=== PATIENT | male | born 1995 | race Caucasian/White ===

== ENCOUNTER 2019-09-01 20:45 | Emergency (ER) | payer OTHER ==
[2019-09-01] MEDS ORDERED: DIPH,PERTUS(ACELL)TETVAC-LF 0.5 ML VIAL IM ONE (21:28)
[2019-09-01] MEDS ORDERED: LIDOCAINE 1% INJ 10MG/ML (20 ML MDV) SQ STA (21:28)
--- NOTE | 2019-09-01 21:51 | XR ---
EXAMINATION TYPE: XR hand complete LT DATE OF EXAM: 09/01/2019 COMPARISON: NONE HISTORY: Pain Laceration TECHNIQUE: 3 views FINDINGS: Metacarpals are intact. I see no fracture nor dislocation. Joint spaces are normal. IMPRESSION: Negative left hand exam.
[2019-09-01 22:23] VITALS: RESP 16
[2019-09-01 22:30] VITALS: BP 149/84; PULSE 65; TEMP 97.5
--- NOTE | 2019-09-01 22:33 | ED ---
General Adult HPI - General Chief complaint: Wound/Laceration Stated complaint: Laceration Time Seen by Provider: 09/01/19 21:11 Source: patient, RN notes reviewed, old records reviewed Mode of arrival: ambulatory Limitations: no limitations - History of Present Illness Initial comments: 24-year-old male patient presents to ED for to complain of laceration to left thumb region. Patient reports that he was using a clean utility knife when it slipped causing a laceration to the lateral aspect of his left thumb. Does not know date of last tetanus. Reports his full active range of motion of digit, full sensation. Denies any other complaints. Systemic: Pt denies fatigue, fever/chills, rash. Pt denies weakness, night sweats, weight loss. Neuro: Pt denies headache, visual disturbances, syncope or pre-syncope. HEENT: Pt denies ocular discharge or irritation, otalgia, rhinorrhea, pharyngitis or notable lymphadenopathy. Cardiopulmonary: Pt denies chest pain, SOB, heart palpitations, dyspnea on exertion. Abdominal/GI: Pt denies abdominal pain, n/v/d. : Pt denies dysuria, burning w/ urination, frequency/urgency. Denies new onset urinary or bowel incontinence. MSK: Pt denies myalgia, loss of strength or function in extremities. Neuro: Pt denies new onset weakness, paresthesias. - Related Data Home Medications Medication Instructions Recorded Confirmed ALPRAZolam [ALPRAZolam XR] 2 mg PO DAILY 11/25/14 11/25/14 Previous Rx's Medication Instructions Recorded Cephalexin [Keflex] 500 mg PO Q8HR #15 cap 11/25/14 Allergies Allergy/AdvReac Type Severity Reaction Status Date / Time peanut Allergy Anaphylaxis Verified 09/01/19 20:53 Review of Systems ROS Statement: Those systems with pertinent positive or pertinent negative responses have been documented in the HPI. ROS Other: All systems not noted in ROS Statement are negative. Past Medical History Past Medical History: Seizure Disorder Past Surgical History: No Surgical Hx Reported Past Psychological History: No Psychological Hx Reported Smoking Status: Never smoker Past Alcohol Use History: Occasional Past Drug Use History: None Reported General Exam - General Exam Comments Initial Comments: Constitutional: NAD, AOX3, Pt has pleasant affect. HEENT: NC/AT, trachea midline, neck supple, no lymphadenopathy. Posterior pharynx non erythematous, without exudates. External ears appear normal, without discharge. Mucous membranes moist. Eyes PERRLA, EOM intact. There is no scleral icterus. No pallor noted. Cardiopulmonary: RRR, no murmurs, rubs or gallops, no JVD noted. Lungs CTAB in anterior and posterior bro. No peripheral edema. Abdominal exam: Abdomen soft and non-distended. Abdomen non-tender to palpation in all 4 quadrants. Bowel sounds active in LLQ. No hepatosplenomegaly. No ecchymosis Neuro: CN II-XII grossly intact. No nuchal rigidity. No raccon eyes, no potter sign, no hemotympanum. No cervical spinal tenderness. MSK: 2 cm laceration lateral aspect of left thumb. Full active range of motion of digit. Neurovascularly intact. Sensation intact. Vigorously irrigated Approximated with 3 simple interrupted sutures. Full range of motion of digit, sensation intact after suture placement. No posterior calf tenderness bilaterally, homans sign negative bilaterally. Posterior tibialis and radial pulse +2 bilaterally. Sensation intact in upper and lower extremities. Full active ROM in upper and lower extremities, 5/5 stregnth. Limitations: no limitations Course Vital Signs 09/01/19 09/01/19 09/01/19 20:50 21:52 22:29 Temperature 97.8 F 97.5 F L Pulse Rate 68 65 Respiratory 20 16 16 Rate Blood Pressure 127/81 149/84 O2 Sat by Pulse 96 98 Oximetry Medical Decision Making - Medical Decision Making 24-year-old male patient presents to ED for chief complaint of laceration. Patient vital signs stable, afebrile. Plain film negative. Full active range of motion of digit. Vigorously irrigated approximately 3 simple interrupted quinones tures. Tetanus updated. Patient discharged with return precautions. Case discussed with Dr. Minor. Disposition Clinical Impression: Laceration Disposition: HOME SELF-CARE Condition: Stable Instructions (If sedation given, give patient instructions): Care For Your Stitches (ED), Laceration (ED) Additional Instructions: Patient to adhere to previously discussed treatment plan and will take medication(s) as directed. Patient to follow up with PCP in 1-2 days. Patient to return to ED if symptoms do not improve. Please return for suture removal: Hand: 7-10 days Face: 5 days Chest/abdomen: 12-14 days Extremities: 7-10 days Scalp: 7 days Eyebrow: 5-7 days Foot/sole: 12-14 days Please monitor for signs and symptoms of infection including: redness, warmth, drainage, discharge. Please return to ED if these signs or symptoms occur, new signs or symptoms develop or if condition worsens in anyway. Is patient prescribed a controlled substance at d/c from ED?: No Referrals: Deion Valdez MD [Primary Care Provider] - 1-2 days
--- NOTE | 2019-09-01 23:37 | ED ---
Disposition Clinical Impression: Laceration Disposition: HOME SELF-CARE Condition: Stable Instructions (If sedation given, give patient instructions): Care For Your Stitches (ED), Laceration (ED) Additional Instructions: Patient to adhere to previously discussed treatment plan and will take medication(s) as directed. Patient to follow up with PCP in 1-2 days. Patient to return to ED if symptoms do not improve. Please return for suture removal: Hand: 7-10 days Face: 5 days Chest/abdomen: 12-14 days Extremities: 7-10 days Scalp: 7 days Eyebrow: 5-7 days Foot/sole: 12-14 days Please monitor for signs and symptoms of infection including: redness, warmth, drainage, discharge. Please return to ED if these signs or symptoms occur, new signs or symptoms develop or if condition worsens in anyway. Is patient prescribed a controlled substance at d/c from ED?: No Referrals: Deion Valdez MD [Primary Care Provider] - 1-2 days Procedures - Laceration Laceration #1 Consent Obtained: verbal consent Indication: laceration Site: hand (L thumb region) Size (cm): 2 Description: linear Depth: simple, single layer Anesthetic Used: lidocaine 1% Anesthesia Technique: local infiltration Amount (mls): 2 Pre-repair: wound explored, irrigated extensively, deep structures intact Type of Sutures: nylon Size of Sutures: 5-0 Number of Sutures: 3 Technique: simple, interrupted Patient Tolerated Procedure: well, no complications
== END 2019-09-01 22:35 | disposition home or self-care (01) ==
LOC: EC 20:45
DX: S61.012A Laceration without foreign body of left thumb without damage to nail, initial encounter (principal); Z91.010 Allergy to peanuts; W26.0XXA Contact with knife, initial encounter; Y93.G1 Activity, food preparation and clean up
CPT/HCPCS: 73130; 90715; 90471; 99283; 12001; J2001

== ENCOUNTER → 2020-10-09 | Outpatient (CLI) | payer OTHER ==
--- NOTE | 2020-10-09 21:30 | MR ---
EXAMINATION TYPE: MR brain wo/w con DATE OF EXAM: 10/09/2020 COMPARISON: CT brain 11/25/2014 HISTORY: Seizure, history of head injury. CONTRAST: Performed utilizing 13 mL intravenous Gadavist gadolinium contrast. TECHNIQUE: Multiplanar, multiecho imaging on a 3.0 Katerine magnet is performed through the brain. Stud y is performed within 24 hours of arrival to the hospital. The craniovertebral junction is normal. The pituitary is normal. Diffusion-weighted imaging is performed. No abnormal hyperintensity is present to suggest an acute i ntracranial infarct or acute ischemic change. There appears to be a small extra-axial collection adjacent to the. This has very low signal and some what heterogenous signal on the T2 star trauma sequences. This is isointense with the white matter on the T2 FLAIR images and appears isointense with the cortex on the T1 sequence. Has a maximum depth o f 0.5 cm may be a small residual subdural hematoma. Signal within brain appears normal. No suspicious white matter changes are evident. No focal atrophy or encephalomalacia is evident. Extra-axial spaces away from the right frontal lobe appear normal. Following contrast administration, no abnormal enhancement is evident. Ventricles and sulci are otherwise appropriate for the patient age. IMPRESSIONS: 1. Small extra-axial collection may be present in the right frontal region with a maximum depth of 0. 5 cm. This could be a small residual old subdural hematoma. Consider correlation with CT exam. 2. Pre and postcontrast MRI of the brain otherwise appears normal.
== END | disposition home or self-care (01) ==
LOC: RADMRIMAIN 15:46
PROVIDERS: ATTEND Psychiatry & Neurology Neurology
DX: G40.009 Localization-related (focal) (partial) idiopathic epilepsy and epileptic syndromes with seizures of localized onset, not intractable, without status epilepticus (principal)
CPT/HCPCS: 70553; A9585